=== PATIENT | female | born 1965 | race Caucasian/White ===

== ENCOUNTER 2017-03-31 09:45 | Emergency (ER) | payer SELFPAY ==
--- NOTE | ~2017-03-31 | CR72 ---
[facility] A Service of [facility] RADIOLOGY TEXT RESULTS PATIENT: FOREIGN RUIZ LOCATION: SED : 65 UNIT #: [id number] AGE: [address]: Hector Garza MD SEX: F ORDER DR: [id number] [place] [id number] E MR#: [id number] Acc #: [id number] NAME: FOREIGN RUIZ : 1965 SEX: F STUDY DATE/TIME: 03/31/2017 10:41 UNIT: SED ROOM: STUDY DESCRIPTION: CR Chest Single View Portable Attending Physician: Hector Garza M.D. Ordering Physician: Hector Garza M.D. Primary Care Physician: Moreno Riley M.D. MEDICAL IMAGING REPORT This report is preliminary unless electronic signature is present. EXAM Portable chest HISTORY Chest pain onset 1 day ago. TECHNIQUE Single AP view chest was obtained. COMPARISON 10/10/2015 FINDINGS A single AP portable view of the chest shows both lungs to be clear. The heart is normal in size. The mediastinal contour is normal. No significant bone abnormalities are seen. IMPRESSION Normal portable chest. Dictated by... Goyo Calderón M.D. THIS IS AN ELECTRONICALLY VERIFIED REPORT Goyo Calderón M.D. at 03/31/2017 1:27 PM MARSHAL/rosalie TD: 03/31/2017 12:32 JOB #: [id number] [facility] A Service of [facility] RADIOLOGY TEXT RESULTS PATIENT: FOREIGN RUIZ LOCATION: SED : 65 UNIT #: [id number] AGE: [address]: Hector Garza MD SEX: F ORDER DR: MEDICAL IMAGING REPORT Page 1 of 1
--- NOTE | ~2017-03-31 | EKG ---
PATIENT: FOREIGN RUIZ UNIT #: [id number] Ventricular Rate: 65 BPM Atrial Rate: 65 BPM P-R Interval: 170 ms QRS Duration: 70 ms Q-T Interval: 412 ms QTC Calculation(Bezet): 428 ms P [place]: 18 degrees Calculated R [place]: 30 degrees Calculated T [place]: 31 degrees Diagnosis Line: Normal sinus rhythm Diagnosis Line: Normal ECG Diagnosis Line: When compared with ECG of 10-OCT-2015 21:09, Diagnosis Line: No significant change was found Diagnosis Line: Confirmed by DL BOOKER MD ([id number]) on Diagnosis Line: 04/01/2017 4:49:46 PM INTERPRETING MD: JHONY PEREZ
[~2017-03-31 09:45] MED LIST: ALBUTEROL17 GM INH; AMOXICILLIN500 M1 PO; CIMETIDINE800 MG PO; CIPRO PO; LORTAB 5/500 TA1 TA1 PO; MEDROL PO; NO MEDICATIONS; PAXIL PO; PAXIL10 MG PO; PHENERGAN PO; PHENERGAN25 M1 PO; PYRIDIUM PO; ZANTAC150 M1 PO; ZANTAC150 MG PO; ZITHROMAX PO
[2017-03-31] MEDS ORDERED: PAXIL PO (10:05)
[2017-03-31] MEDS ORDERED: MOTRIN20 MG/ML PO (10:05)
[2017-03-31 10:31] LABS: BASOPHIL# 0.1 X10e3 (0-0.3); BASOPHIL% 1.3 % (0-2.5); EOSINOPHIL# 0.4 X10e3 (0-0.7); EOSINOPHIL% 5.1 % (0.0-7.0); HEMATOCRIT 31.1 % (35.0-45.0); LYMPHOCYTE# 1.8 X10e3 (1.0-3.5); LYMPHOCYTE% 24.9 % (17.0-45.0); MEAN CELL VOLUME 75.3 FL (83-96); MEAN CORPUSCULAR HEMOGLOBIN 24.2 PG (28-34); MEAN CORPUSCULAR HGB CONC 32.1 g/dL (30-36); MEAN PLATELET VOLUME 8.4 FL (6.5-11.5); MONOCYTE# 0.6 X10e3 (0-1.0); MONOCYTE% 8.5 % (3.0-12.0); NEUTROPHIL# 4.3 X10e3 (1.5-7.1); NEUTROPHIL% 60.2 % (40-75); PLATELET COUNT 330 X10e3 (140-420); RED BLOOD COUNT 4.13 X10e (3.90-5.30); WHITE BLOOD COUNT 7.2 X10e3 (4.0-10.5)
[2017-03-31 10:35] LABS: DIFF IND NO
[2017-03-31 10:36] LABS: POC - CKMB <1.0 ng/mL (0.0-7.9); POC - TROPONIN <0.05 ng/mL (<=0.05)
[2017-03-31 10:40] LABS: PROTHROMBIN TIME (PATIENT) 11.1 SECONDS (9.5-12.4)
[2017-03-31 10:47] LABS: PARTIAL THROMBOPLASTIN TIME 25.9 SECONDS (25.6-38.1)
[2017-03-31 10:48] LABS: ALBUMIN SERUM 3.8 g/dL (3.5-5.0); BILIRUBIN,TOTAL 0.4 mg/dL (0.2-2.0); CALCIUM SERUM 8.5 mg/dL (8.4-10.2); CREATININE SERUM 0.5 mg/dL (0.6-1.4); GLOM FILT RATE Estimated 112.1 mL/min (>60); POTASSIUM 3.5 mmol/L (3.5-5.1); PROTEIN TOTAL SERUM 6.8 g/dL (6.0-8.3)
== END 2017-03-31 11:33 | disposition home or self-care (01) ==
LOC: SED 09:45
PROVIDERS: Emergency Medicine
DX: R07.89 Other chest pain (principal); F41.9 Anxiety disorder, unspecified; I10 Essential (primary) hypertension; D64.9 Anemia, unspecified; F17.210 Nicotine dependence, cigarettes, uncomplicated; Z79.899 Other long term (current) drug therapy
CPT/HCPCS: 36415; 71010; 80053; 82553; 84484; 85025; 85610; 85730; 93005; 96361; 96374; 99285; J2060